=== PATIENT | male | born 1960 | race Caucasian/White ===

== ENCOUNTER 2021-06-23 10:06 | Inpatient (IN) | payer MEDICAID ==
[2021-06-23 10:44] LABS: COVID AG,FIA SOURCE NASAL SWAB
[2021-06-23] MEDS ORDERED: BUPIVACAINE/EPI/PF 0.5% 30 ML VIAL ONE (10:45)
[2021-06-23] MEDS ORDERED: BUPIVACAINE LIPOSOME/PF 1.3%-13.3MG/ML SUSPENSION 20 ML VIAL INJ ONE (10:45)
[2021-06-23] MEDS ORDERED: THROMBIN, BOVINE 20000 UNITS/VIAL POWDER TP ONE (10:45)
[2021-06-23] MEDS ORDERED: SODIUM CHLORIDE 0.9% 1,000 ML ONE ×3 (10:54→13:50)
[2021-06-23] MEDS ORDERED: ROCURONIUM BROMIDE 10 MG/ML 5 ML VIAL IVP ONE (12:00)
[2021-06-23] MEDS ORDERED: ALBUTEROL SULFATE HFA 90 MCG/PUFF 8 GM INHALER IH ONE (12:00)
[2021-06-23] MEDS ORDERED: PROPOFOL 1% 20 ML VIAL IVP ONE (12:00)
[2021-06-23] MEDS ORDERED: DEXAMETHASONE SOD PHOS 4 MG/ML VIAL IVP ONE (12:00)
[2021-06-23] MEDS ORDERED: NEOSTIGMINE METHYLSULFATE 1 MG/ML 10 ML VIAL IVP ONE (12:00)
[2021-06-23] MEDS ORDERED: LABETALOL HCL 5 MG/ML 20 ML VIAL IVP ONE (12:00)
[2021-06-23] MEDS ORDERED: KETAMINE HCL 50 MG/ML 10 ML VIAL IVP ONE (12:00)
[2021-06-23] MEDS ORDERED: ONDANSETRON HCL 4 MG/2 ML VIAL IVP ONE (12:00)
[2021-06-23] MEDS ORDERED: FentaNYL CITRATE PF 100 MCG/2 ML VIAL IVP ONE (12:00)
[2021-06-23] MEDS ORDERED: METOCLOPRAMIDE HCL 5 MG/ML 2 ML VIAL IVP ONE (12:00)
[2021-06-23] MEDS ORDERED: GLYCOPYRROLATE 0.2 MG/ML VIAL IM ONE (12:00)
[2021-06-23] MEDS ORDERED: MIDAZOLAM HCL 2 MG/2 ML VIAL IVP ONE (12:00)
[2021-06-23] MEDS ORDERED: HYDROmorphone 2 MG/ML VIAL IVP PRN ×2 (13:00→15:30)
[2021-06-23] MEDS ORDERED: FentaNYL CITRATE PF 100 MCG/2 ML VIAL IVP PRN (13:00)
[2021-06-23] MEDS ORDERED: VANCOMYCIN HCL 1 GM/VIAL ONE (13:12)
[2021-06-23] MEDS ORDERED: GELATIN SPONGE,ABSORBABLE 100 MM TP ONE (14:20)
[2021-06-23] MEDS ORDERED: ACETAMINOPHEN 1000 MG/ISO-OSM 100 ML IV ONE ×2 (15:00→15:57)
[2021-06-23] MEDS ORDERED: HYDROCODONE/ACETAMINOPHEN 5-325 MG TABLET PO PRN (15:30)
[2021-06-23] MEDS ORDERED: ONDANSETRON HCL 4 MG/2 ML VIAL IVP PRN (16:00)
[2021-06-23] MEDS ORDERED: ACETAMINOPHEN 325 MG TABLET PO PRN (16:00)
[2021-06-23 17:25] VITALS: BP 154/80
[2021-06-23] MEDS: HYDROCODONE/ACETAMINOPHEN 10-325 MG TABLET PO PRN ×2 (17:27→22:28)
[2021-06-23] MEDS: DEXAMETHASONE SOD PHOS 4 MG/ML VIAL IVP SCH ×2 (17:27→23:51)
[2021-06-23] MEDS: OXYGEN THERAPY IH SCH (20:00)
[2021-06-23] MEDS: CeFAZolin 2 GM/DEXTROSE 50 ML IV SCH (21:05)
[2021-06-23] MEDS: DOCUSATE SODIUM 100 MG CAPSULE PO SCH (21:05)
[2021-06-23 23:35] VITALS: BP 125/80
[2021-06-24] MEDS: CeFAZolin 2 GM/DEXTROSE 50 ML IV SCH ×2 (05:25→12:41)
[2021-06-24] MEDS: HYDROCODONE/ACETAMINOPHEN 10-325 MG TABLET PO PRN ×2 (05:25→12:40)
[2021-06-24] MEDS: DEXAMETHASONE SOD PHOS 4 MG/ML VIAL IVP SCH ×2 (05:26→12:41)
[2021-06-24 05:39] VITALS: BP 110/69
[2021-06-24 07:46] VITALS: BP 116/81
[2021-06-24] MEDS: DOCUSATE SODIUM 100 MG CAPSULE PO SCH ×2 (08:11→12:40)
[2021-06-24] MEDS: OXYGEN THERAPY IH SCH (08:11)
[2021-06-24] MEDS ORDERED: FAMOTIDINE 20 MG TABLET PO SCH (09:00)
== END 2021-06-24 15:11 | disposition home or self-care (01) | DRG 320 ==
LOC: SURGERY 10:06 → 6S 10:07
PROVIDERS: ADMIT Internal Medicine; ATTEND Internal Medicine
PROC: 01NB0ZZ Release Lumbar Nerve, Open Approach (ICD-10-PCS; principal; 2021-06-23 11:50)
DX: M48.062 Spinal stenosis, lumbar region with neurogenic claudication (principal); G31.89 Other specified degenerative diseases of nervous system; G89.29 Other chronic pain; M54.16 Radiculopathy, lumbar region; K59.00 Constipation, unspecified; Z20.822 Contact with and (suspected) exposure to COVID-19
CPT/HCPCS: 87081; 97162; 97530; C9290; G0378; J0131; J0690; J1100; J1170; J2250; J2405; J2704; J2765; J3010; J3370; J3490; J3535; J7030; Q9967